=== PATIENT | female | born 1990 | race African-American/Black ===

== ENCOUNTER 2024-11-01 11:47 | Emergency (ER) | payer MEDICAID ==
[~2024-11-01] VITALS: Ht 157.5 cm; Wt 58.0 kg
[~2024-11-01 11:47] MED LIST: NOCURR
[2024-11-01 11:50] VITALS: BP 158/96; PULSE 84; RESP 20; TEMP 98.5; O2SAT 100
[2024-11-01] MEDS ORDERED: DIPH50CA37 PO (13:10)
[2024-11-01] MEDS ORDERED: HYDR-4062 PO (13:10)
[2024-11-01] MEDS ORDERED: IBUP-1554 PO (13:10)
[2024-11-01] MEDS: HYDROCODONE/ACETAMINOPHEN 5-325 MG TABLET PO ONE (13:12)
== END 2024-11-01 14:11 | disposition home or self-care (01) ==
LOC: EMS 11:47
DX: S63.501A Unspecified sprain of right wrist, initial encounter (principal); F43.20 Adjustment disorder, unspecified; W57.XXXA Bitten or stung by nonvenomous insect and other nonvenomous arthropods, initial encounter; Y93.89 Activity, other specified; Y92.89 Other specified places as the place of occurrence of the external cause; Y99.8 Other external cause status
CPT/HCPCS: 99283